=== PATIENT | male | born 1985 | race Caucasian/White ===

== ENCOUNTER 2016-10-27 22:22 | Emergency (ER) | payer OTHER ==
[~2016-10-27] VITALS: Ht 175.3 cm; Wt 72.1 kg
[~2016-10-27 22:22] MED LIST: ACETAMINOPHEN325 M1 PO; AMOX TR-K CLV1 EAC4; BACTRIM,SEPT1 TABLET PO; BACTROBAN NASAL1 G1 BOTH NARES; BENADRYL50 MG/ML IM; CATHFLO ACT2 MG/2 ML IV; Ceftin PO; DAILY VITAMIN1 EAC8 PO; Dilaudid PO; ENDOCET 5-3251 EACH PO; EXCEDRIN MIGRA1 EAC3 PO; FACTOR VIII; HIBICLENS118 ML TP; Heparin Lock 100 uni IV; LIDODERM 5% P1 PATCH TD; METHADONE10 MG PO; MOTRIN IB200 MG PO; PERCOCET 5/31 TABLET PO; PROVENTIL,2.5 MG/3 M IH; Percocet 5/325,Endoc PO; Protonix PO; SALINE FLUSH 5 M5 ML IV; TRAMADOL HCL50 MG PO; TYLENOL REGULA325 MG PO; ULTRAM50 MG PO; Vancomycin IV; ZYVOX600 MG PO; [UNRECOGNIZED DRUG - OTHER] IM; [UNRECOGNIZED DRUG - OTHER] IV; [UNRECOGNIZED DRUG - OTHER] IV; [UNRECOGNIZED DRUG - OTHER] IV
[2016-10-27 23:19] LABS: HEMATOCRIT 41.4 % (38.0-50.0); MCH 31.5 PG (29.0-34.0); MCHC 35.3 G/DL (30.0-36.0); MCV 89.4 FL (86-99); MEAN PLAT.VOLUME 10.4 uM^3 (9.0-12.4); PLATELET COUNT 214 K/uL (156-360); RBC DIS.WIDTH-CV 12.4 % (11.8-14.6); RBC DIS.WIDTH-SD 39.8 % (39-53); RED BLOOD COUNT 4.63 M/uL (4.00-5.50); WHITE BLOOD COUNT 11.4 K/uL (4.1-10.2)
[2016-10-27 23:26] LABS: CHLORIDE 106 mEq/L (99-109); POTASSIUM 3.9 mEq/L (3.7-5.4); SODIUM 139 mEq/L (136-147)
[2016-10-27 23:27] LABS: GLUCOSE 97 mg/dL (70-99)
[2016-10-27 23:29] LABS: ANION GAP 13 MEQ/L (2-14)
[2016-10-27 23:31] LABS: GFR ESTIMATE (CALCULATED) > 59 mL/min/
[2016-10-27 23:32] LABS: UREA NITROGEN (BUN) 17 mg/dL (9-23)
[2016-10-27 23:39] LABS: TROP-I INTERPRETATION NEGATIVE; TROPONIN-I < 0.01 ng/mL (0.0-0.30)
[2016-10-28 00:36] VITALS: BP 114/74
== END 2016-10-28 00:53 ==
LOC: EME 22:22
PROVIDERS: Emergency Medicine
DX: R00.2 Palpitations (principal); T45.8X5A Adverse effect of other primarily systemic and hematological agents, initial encounter; D66 Hereditary factor VIII deficiency; Z87.891 Personal history of nicotine dependence
CPT/HCPCS: 71020; 80048; 83605; 83880; 84484; 85027; 87040; 93005; 99281; 99285; J1885; J7030

== ENCOUNTER 2016-10-31 06:41 | Inpatient (IN) | payer OTHER ==
[~2016-10-31] VITALS: Ht 170.2 cm; Wt 70.0 kg
[2016-10-31 07:28] LABS: EOSINOPHIL (%) 0.1 % (0-5); IMMATURE GRANULOCYTE (%) 0.3 % (0.0-0.7); IMMATURE GRANULOCYTE COUNT 0.4 K/uL; LYMPHOCYTE COUNT 1.6 K/uL (1.0-2.8); MCH 31.9 PG (29.0-34.0); MCHC 35.6 G/DL (30.0-36.0); MCV 89.4 FL (86-99); MEAN PLAT.VOLUME 9.9 uM^3 (9.0-12.4); MONOCYTE (%) 10.1 % (3-12); MONOCYTE COUNT 1.3 K/uL (0-0.8); NEUTROPHIL COUNT 10.1 K/uL (1.8-6.4); PLATELET COUNT 214 K/uL (156-360); RBC DIS.WIDTH-CV 12.5 % (11.8-14.6); RBC DIS.WIDTH-SD 40.3 % (39-53); RED BLOOD COUNT 4.36 M/uL (4.00-5.50); WHITE BLOOD COUNT 13.1 K/uL (4.1-10.2)
[2016-10-31 07:47] LABS: INTER. NORMALIZED RATIO 1.1; PROTHROMBIN TIME 11.3 (9.2-11.2)
[2016-10-31 07:48] LABS: CHLORIDE 104 mEq/L (99-109); POTASSIUM 3.7 mEq/L (3.7-5.4); SODIUM 138 mEq/L (136-147)
[2016-10-31 07:50] LABS: GLUCOSE 100 mg/dL (70-99); TROP-I INTERPRETATION NEGATIVE; TROPONIN-I < 0.01 ng/mL (0.0-0.30)
[2016-10-31 07:51] LABS: ANION GAP 11 MEQ/L (2-14)
[2016-10-31 07:52] LABS: TOTAL BILIRUBIN 0.6 mg/dL (0.0-1.0)
[2016-10-31 07:54] LABS: ALKALINE PHOSPHATASE 70 IU/L (3-129); GFR ESTIMATE (CALCULATED) > 59 mL/min/
[2016-10-31 07:55] LABS: UREA NITROGEN (BUN) 12 mg/dL (9-23)
[2016-10-31 07:57] LABS: LIPASE 5 U/L (1.0-51.0)
[2016-10-31 08:08] LABS: PTT > 150.0 (25-32)
[2016-10-31 10:02] LABS: ADD MIUA? NO; BILIRUBIN NEGATIVE; BLOOD NEGATIVE; COLOR YELLOW ((YELLOW)); GLUCOSE (STRIP) NEGATIVE; KETONES NEGATIVE; LEUKOCYTES NEGATIVE; NITRITE NEGATIVE; PH, URINE 7.5 (5-8); PROTEIN (STRIP) NEGATIVE; UCUL ADDED? NO; UROBILINOGEN 0.2 MG/DL (0.2-1.0)
[2016-10-31] MEDS ORDERED: TYLENOL REGULA325 MG PO (10:21)
[2016-10-31 12:17] LABS: TROP-I INTERPRETATION NEGATIVE; TROPONIN-I < 0.01 ng/mL (0.0-0.30)
[2016-10-31 16:23] VITALS: BP 115/65; BP 141/75
[2016-10-31 19:25] LABS: TROP-I INTERPRETATION NEGATIVE; TROPONIN-I < 0.01 ng/mL (0.0-0.30)
[2016-10-31 19:52] VITALS: BP 122/70
[2016-11-01] VITALS (8 sets, daily range): BP systolic 95–148; BP diastolic 55–95
[2016-11-01 07:24] LABS: HEMATOCRIT 37.1 % (38.0-50.0); MCH 31.5 PG (29.0-34.0); MCHC 33.7 G/DL (30.0-36.0); MEAN PLAT.VOLUME 10.5 uM^3 (9.0-12.4); PLATELET COUNT 184 K/uL (156-360); RBC DIS.WIDTH-SD 44.5 % (39-53); RED BLOOD COUNT 3.97 M/uL (4.00-5.50)
[2016-11-01 07:28] LABS: MCV 93.5 FL (86-99)
[2016-11-02] VITALS: BP 110/62
[2016-11-02 04:22] VITALS: BP 112/70
[2016-11-02 06:45] LABS: MCH 31.3 PG (29.0-34.0); MCHC 34.2 G/DL (30.0-36.0); MCV 91.6 FL (86-99); MEAN PLAT.VOLUME 10.3 uM^3 (9.0-12.4); PLATELET COUNT 206 K/uL (156-360); RBC DIS.WIDTH-CV 12.7 % (11.8-14.6); RBC DIS.WIDTH-SD 43.1 % (39-53); RED BLOOD COUNT 3.93 M/uL (4.00-5.50); WHITE BLOOD COUNT 12.4 K/uL (4.1-10.2)
[2016-11-02 07:11] LABS: ANION GAP 11 MEQ/L (2-14); CHLORIDE 102 MEQ/L (99-109); GFR ESTIMATE (CALCULATED) > 59 mL/min/; GLUCOSE 118 mg/dL (70-99); POTASSIUM 3.6 MEQ/L (3.7-5.4); SAMPLE HEMOLYSIS CHECK 0; SAMPLE ICTERIC CHECK 0; SAMPLE LIPEMIA CHECK 0; SODIUM 136 MEQ/L (136-147); UREA NITROGEN (BUN) 6 mg/dL (9-23)
[2016-11-02 07:43] VITALS: BP 105/89
[2016-11-02 11:14] VITALS: BP 120/60
[2016-11-02 16:09] VITALS: BP 102/61
[2016-11-02 21:13] VITALS: BP 106/63
[2016-11-03] VITALS (8 sets, daily range): BP systolic 95–132; BP diastolic 52–82
[2016-11-03 07:00] LABS: HEMATOCRIT 34.6 % (38.0-50.0); MCH 31.3 PG (29.0-34.0); MCV 89.6 FL (86-99); MEAN PLAT.VOLUME 9.9 uM^3 (9.0-12.4); PLATELET COUNT 221 K/uL (156-360); RBC DIS.WIDTH-CV 12.3 % (11.8-14.6); RBC DIS.WIDTH-SD 39.6 % (39-53); RED BLOOD COUNT 3.86 M/uL (4.00-5.50)
[2016-11-03 07:01] LABS: WHITE BLOOD COUNT 7.3 K/uL (4.1-10.2)
[2016-11-03 07:38] LABS: ANION GAP 8 MEQ/L (2-14); CHLORIDE 104 MEQ/L (99-109); GFR ESTIMATE (CALCULATED) > 59 mL/min/; POTASSIUM 4.2 MEQ/L (3.7-5.4); SAMPLE HEMOLYSIS CHECK 0; SAMPLE ICTERIC CHECK 0; SAMPLE LIPEMIA CHECK 0; SODIUM 135 MEQ/L (136-147); UREA NITROGEN (BUN) 10 mg/dL (9-23)
[2016-11-03 07:46] LABS: GLUCOSE 84 mg/dL (70-99)
[2016-11-04] VITALS: BP 114/70
[2016-11-04 03:49] VITALS: BP 110/68
[2016-11-04 07:13] LABS: HEMATOCRIT 32.2 % (38.0-50.0); MCH 30.2 PG (29.0-34.0); MCHC 33.2 G/DL (30.0-36.0); MEAN PLAT.VOLUME 9.7 uM^3 (9.0-12.4); PLATELET COUNT 256 K/uL (156-360); RBC DIS.WIDTH-CV 12.7 % (11.8-14.6); RBC DIS.WIDTH-SD 42.2 % (39-53); RED BLOOD COUNT 3.54 M/uL (4.00-5.50); WHITE BLOOD COUNT 6.8 K/uL (4.1-10.2)
[2016-11-04 07:35] VITALS: BP 116/62
[2016-11-04 11:31] VITALS: BP 132/72
[2016-11-04 16:29] VITALS: BP 110/68
[2016-11-04 20:16] VITALS: BP 109/69
[2016-11-05] VITALS (7 sets, daily range): BP systolic 106–115; BP diastolic 59–72
[2016-11-06 04:18] VITALS: BP 104/64
[2016-11-06 07:37] VITALS: BP 113/74
[2016-11-06 10:51] VITALS: BP 108/68
[2016-11-06 15:23] VITALS: BP 116/76
[2016-11-06 19:45] VITALS: BP 112/78
[2016-11-06 23:58] VITALS: BP 99/61
[2016-11-07 03:55] VITALS: BP 109/64
[2016-11-07 07:50] VITALS: BP 142/67
[2016-11-07 11:52] VITALS: BP 103/65
[2016-11-07 15:02] VITALS: BP 108/71
[2016-11-07 21:00] VITALS: BP 114/76
[2016-11-07 23:39] VITALS: BP 108/64
[2016-11-08 07:53] VITALS: BP 103/65
[2016-11-08 08:20] LABS: HEMATOCRIT 33.8 % (38.0-50.0); MCH 31.5 PG (29.0-34.0); MCHC 34.3 G/DL (30.0-36.0); MCV 91.8 FL (86-99); RBC DIS.WIDTH-CV 12.6 % (11.8-14.6); RBC DIS.WIDTH-SD 42.6 % (39-53); RED BLOOD COUNT 3.68 M/uL (4.00-5.50); WHITE BLOOD COUNT 5.5 K/uL (4.1-10.2)
[2016-11-08 08:34] LABS: MEAN PLAT.VOLUME 9.3 uM^3 (9.0-12.4); PLATELET COUNT 345 K/uL (156-360)
[2016-11-08 08:46] LABS: ANION GAP 9 MEQ/L (2-14); CHLORIDE 103 MEQ/L (99-109); GFR ESTIMATE (CALCULATED) > 59 mL/min/; GLUCOSE 85 mg/dL (70-99); POTASSIUM 4.5 MEQ/L (3.7-5.4); SAMPLE HEMOLYSIS CHECK 0; SAMPLE ICTERIC CHECK 0; SAMPLE LIPEMIA CHECK 0; SODIUM 137 MEQ/L (136-147); UREA NITROGEN (BUN) 11 mg/dL (9-23)
[2016-11-08 11:26] VITALS: BP 113/67
[2016-11-08 15:45] VITALS: BP 107/66
[2016-11-08 19:39] VITALS: BP 104/61
[2016-11-08 23:57] VITALS: BP 119/73
[2016-11-09 04:13] VITALS: BP 107/68
[2016-11-09 07:48] VITALS: BP 100/65
[2016-11-09 11:28] VITALS: BP 108/72
[2016-11-09 15:56] VITALS: BP 112/70
[2016-11-09 19:23] VITALS: BP 108/59
[2016-11-09 23:33] VITALS: BP 98/55
[2016-11-10 08:00] VITALS: BP 113/61
[2016-11-10 12:15] VITALS: BP 110/62
[2016-11-10] MEDS ORDERED: FLUCONAZOLE200 MG PO (12:25)
[2016-11-10 15:38] VITALS: BP 114/60
== END 2016-11-10 18:46 | DRG 314 ==
LOC: EME → EDBD 06:41 → EME 06:41 → 5SOUTH 09:12 → EDOF 09:12 → 5WEST 15:38 → 5SOUTH 15:43
PROVIDERS: Emergency Medicine; Hospitalist; Nurse Practitioner Adult Health; Physician Assistant
PROC: 0JPT0XZ Removal of Tunneled Vascular Access Device from Trunk Subcutaneous Tissue and Fascia, Open Approach (ICD-10-PCS; principal; 2016-11-01)
PROC: 02HV33Z Insertion of Infusion Device into Superior Vena Cava, Percutaneous Approach (ICD-10-PCS; 2016-11-07)
PROC: 0JH60XZ Insertion of Tunneled Vascular Access Device into Chest Subcutaneous Tissue and Fascia, Open Approach (ICD-10-PCS; 2016-11-07)
DX: T82.7XXA Infection and inflammatory reaction due to other cardiac and vascular devices, implants and grafts, initial encounter (principal); A41.01 Sepsis due to Methicillin susceptible Staphylococcus aureus; R65.20 Severe sepsis without septic shock; D66 Hereditary factor VIII deficiency; J15.212 Pneumonia due to Methicillin resistant Staphylococcus aureus; J18.9 Pneumonia, unspecified organism; B18.2 Chronic viral hepatitis C; Z87.891 Personal history of nicotine dependence; I87.8 Other specified disorders of veins; Y83.2 Surgical operation with anastomosis, bypass or graft as the cause of abnormal reaction of the patient, or of later complication, without mention of misadventure at the time of the procedure
CPT/HCPCS: 71010; 71275; 80048; 80053; 80202; 81003; 83605; 83690; 84484; 85025; 85027; 85610; 85730; 87040; 87070; 87077; 87106; 87147; 87186; 87186 90; 87801; 93005; 93306; 93312; 99281; 99285; C1751; J0690; J1170; J1885; J1956; J2250; J2270; J2543; J3010; J3370; J7030; J7050; J7120; J7192; S0028

== ENCOUNTER 2016-11-17 18:46 | Emergency (ER) | payer OTHER ==
[~2016-11-17] VITALS: Ht 175.3 cm; Wt 69.5 kg
[~2016-11-17 18:46] MED LIST changes: +FLUCONAZOLE200 MG PO
[2016-11-17 20:25] LABS: EOSINOPHIL (%) 2.4 % (0-5); EOSINOPHIL COUNT 0.2 K/uL (0-0.3); HEMATOCRIT 37.3 % (38.0-50.0); IMMATURE GRANULOCYTE (%) 0.2 % (0.0-0.7); IMMATURE GRANULOCYTE COUNT 0.2 K/uL; LYMPHOCYTE COUNT 1.8 K/uL (1.0-2.8); MCH 31.4 PG (29.0-34.0); MCHC 34.3 G/DL (30.0-36.0); MCV 91.4 FL (86-99); MEAN PLAT.VOLUME 9.6 uM^3 (9.0-12.4); MONOCYTE (%) 8.4 % (3-12); MONOCYTE COUNT 0.7 K/uL (0-0.8); NEUTROPHIL COUNT 5.5 K/uL (1.8-6.4); PLATELET COUNT 345 K/uL (156-360); RBC DIS.WIDTH-CV 13.1 % (11.8-14.6); RBC DIS.WIDTH-SD 42.2 % (39-53); RED BLOOD COUNT 4.08 M/uL (4.00-5.50); WHITE BLOOD COUNT 8.2 K/uL (4.1-10.2)
[2016-11-17 20:33] LABS: ADD MIUA? NO; BILIRUBIN NEGATIVE; BLOOD NEGATIVE; COLOR YELLOW ((YELLOW)); GLUCOSE (STRIP) NEGATIVE; KETONES NEGATIVE; LEUKOCYTES NEGATIVE; NITRITE NEGATIVE; PROTEIN (STRIP) NEGATIVE; SPECIFIC GRAVITY 1.021 (1.000-1.030); UCUL ADDED? NO; UROBILINOGEN 0.2 MG/DL (0.2-1.0)
[2016-11-17 20:41] LABS: CHLORIDE 105 mEq/L (99-109); POTASSIUM 3.9 mEq/L (3.7-5.4); SODIUM 140 mEq/L (136-147)
[2016-11-17 20:43] LABS: GLUCOSE 80 mg/dL (70-99)
[2016-11-17 20:44] LABS: ANION GAP 11 MEQ/L (2-14)
[2016-11-17 20:47] LABS: GFR ESTIMATE (CALCULATED) > 59 mL/min/; UREA NITROGEN (BUN) 12 mg/dL (9-23)
[2016-11-17 21:17] LABS: C-REACTIVE PROTEIN 9.5 MG/L (0-10); SAMPLE HEMOLYSIS CHECK 0; SAMPLE ICTERIC CHECK 0; SAMPLE LIPEMIA CHECK 0
[2016-11-17] MEDS ORDERED: CLEOCIN300 MG PO (22:05)
[2016-11-17 22:20] VITALS: BP 124/83
== END 2016-11-17 22:23 ==
LOC: EME 18:46
PROVIDERS: Emergency Medicine
DX: R50.9 Fever, unspecified (principal); D66 Hereditary factor VIII deficiency
CPT/HCPCS: 80048; 81003; 85025; 86140; 87040; 99281; 99285